=== PATIENT | male | born 1960 | race Caucasian/White ===

== ENCOUNTER 2023-02-17 09:00 | Outpatient (RCR) | payer OTHER, SELFPAY ==
[2023-02-17] MEDS: Normal Saline Flush 10 ML SYR IVP (10:13)
[2023-02-17 10:19] LABS: Abs Immature Grans 0.03 10^3/uL (0.0-0.06); Absolute Basophil Count 0.06 10^3/uL (0.0-0.2); Absolute Eosinophil Count 0.01 10^3/uL (0.0-0.7); Absolute Lymphocyte Count 0.71 10^3/uL (1.2-3.4); Absolute Monocyte Count 1.01 10^3/uL (0.1-0.8); Basophils % 0.8; Eosinophils % 0.1; HCT 33.9 % (40.0-50.0); HGB 11.1 g/dL (13.5-17.5); Immature Grans % 0.4; MCH 31.2 pg (27.0-33.0); MCHC 32.7 % (32.0-36.0); MCV 95 fL (80-95); MPV 9.2 fL (8.0-11.0); Monocytes % 14.2; Neutrophils % 74.5; Platelet Count 380 10^3/uL (130-400); RBC 3.56 10^6/uL (4.36-5.78); RDW 26.1 % (11.8-14.1); RDW-SD 86.4 fL; WBC 7.12 10^3/uL (4.4-10.8)
[2023-02-17 10:36] LABS: ALT 16 U/L (16-63); AST 9 U/L (15-37); Albumin 3.8 g/dL (3.4-5.0); Alkaline Phosphatase 103 U/L (46-116); Anion Gap 7.4 mmol/L (3-11); BUN 14 mg/dL (7-18); Bilirubin, Total 0.3 mg/dL (0.2-1.0); CO2 24.6 mmol/L (21.0-32.0); CREATININE 0.8 mg/dL (0.70-1.30); Calcium 8.9 mg/dL (8.5-10.1); Chloride 105 mmol/L (98-107); Estimated GFR 100.69 (mL/min/1.73m2); Glucose 102 mg/dL (74-106); LDH 182 U/L (85-227); Sodium 137 mmol/L (136-145); Total Protein 8.1 g/dL (6.4-8.2); Uric Acid 3.1 mg/dL (3.5-7.2)
== END 2023-03-07 23:59 | disposition home or self-care (01) ==
LOC: INF 09:00
PROVIDERS: PCP Neuromusculoskeletal Medicine & OMM; Visit Provider Internal Medicine Hematology & Oncology
DX: Z45.2 Encounter for adjustment and management of vascular access device (principal); C86.0 Extranodal NK/T-cell lymphoma, nasal type; R59.1 Generalized enlarged lymph nodes; R16.0 Hepatomegaly, not elsewhere classified
CPT/HCPCS: 36591; 80053; 83615; 84550; 85025

== ENCOUNTER 2023-03-31 04:07 | Outpatient (RCR) | payer OTHER, SELFPAY ==
[2023-03-10] MEDS: Normal Saline Flush 10 ML SYR IVP (09:54)
[2023-03-10 09:57] LABS: Abs Immature Grans 0.04 10^3/uL (0.0-0.06); Absolute Basophil Count 0.08 10^3/uL (0.0-0.2); Absolute Lymphocyte Count 0.71 10^3/uL (1.2-3.4); Absolute Monocyte Count 1.04 10^3/uL (0.1-0.8); Absolute Neutrophil Count 5.74 10^3/uL (1.2-6.7); Basophils % 1.1; HCT 37.2 % (40.0-50.0); HGB 12.4 g/dL (13.5-17.5); Immature Grans % 0.5; Lymphocytes % 9.3; MCHC 33.3 % (32.0-36.0); MCV 96 fL (80-95); MPV 9.2 fL (8.0-11.0); Monocytes % 13.7; Neutrophils % 75.4; Platelet Count 335 10^3/uL (130-400); RBC 3.88 10^6/uL (4.36-5.78); RDW 22.9 % (11.8-14.1); RDW-SD 79.5 fL; WBC 7.61 10^3/uL (4.4-10.8)
[2023-03-10 10:12] LABS: ALT 17 U/L (16-63); AST 11 U/L (15-37); Albumin 3.8 g/dL (3.4-5.0); Alkaline Phosphatase 101 U/L (46-116); Anion Gap 9.7 mmol/L (3-11); BUN 12 mg/dL (7-18); Bilirubin, Total 0.2 mg/dL (0.2-1.0); CO2 24.3 mmol/L (21.0-32.0); CREATININE 0.9 mg/dL (0.70-1.30); Chloride 106 mmol/L (98-107); Estimated GFR 97.17 (mL/min/1.73m2); Glucose 124 mg/dL (74-106); LDH 169 U/L (85-227); Potassium 4.3 mmol/L (3.5-5.1); Sodium 140 mmol/L (136-145); Total Protein 7.9 g/dL (6.4-8.2); Uric Acid 4.3 mg/dL (3.5-7.2)
[2023-03-31] MEDS: Normal Saline Flush 10 ML SYR IVP (09:20)
[2023-03-31 09:29] LABS: Abs Immature Grans 0.03 10^3/uL (0.0-0.06); Absolute Basophil Count 0.05 10^3/uL (0.0-0.2); Absolute Eosinophil Count 0.06 10^3/uL (0.0-0.7); Absolute Lymphocyte Count 0.74 10^3/uL (1.2-3.4); Absolute Monocyte Count 0.93 10^3/uL (0.1-0.8); Absolute Neutrophil Count 4.41 10^3/uL (1.2-6.7); Basophils % 0.8; HCT 39.1 % (40.0-50.0); HGB 13.1 g/dL (13.5-17.5); Immature Grans % 0.5; Lymphocytes % 11.9; MCH 32.8 pg (27.0-33.0); MCHC 33.5 % (32.0-36.0); MCV 98 fL (80-95); MPV 9.6 fL (8.0-11.0); Neutrophils % 70.8; Platelet Count 287 10^3/uL (130-400); RDW 19.9 % (11.8-14.1); RDW-SD 72.7 fL; WBC 6.22 10^3/uL (4.4-10.8)
[2023-03-31 09:46] LABS: ALT 19 U/L (16-63); AST 11 U/L (15-37); Albumin 3.7 g/dL (3.4-5.0); Alkaline Phosphatase 105 U/L (46-116); Anion Gap 6.8 mmol/L (3-11); BUN 16 mg/dL (7-18); Bilirubin, Total 0.2 mg/dL (0.2-1.0); CO2 24.2 mmol/L (21.0-32.0); CREATININE 0.8 mg/dL (0.70-1.30); Calcium 8.8 mg/dL (8.5-10.1); Chloride 104 mmol/L (98-107); Estimated GFR 100.69 (mL/min/1.73m2); Glucose 137 mg/dL (74-106); LDH 167 U/L (85-227); Potassium 3.9 mmol/L (3.5-5.1); Sodium 135 mmol/L (136-145); Total Protein 7.6 g/dL (6.4-8.2)
== END 2023-04-07 23:59 | disposition home or self-care (01) ==
LOC: INF 04:07
PROVIDERS: PCP Neuromusculoskeletal Medicine & OMM; Visit Provider Internal Medicine Hematology & Oncology
DX: Z45.2 Encounter for adjustment and management of vascular access device (principal); C84.48 Peripheral T-cell lymphoma, not elsewhere classified, lymph nodes of multiple sites
CPT/HCPCS: 36591; 80053; 83615; 84550; 85025

== ENCOUNTER 2023-04-21 03:05 | Outpatient (RCR) | payer OTHER, SELFPAY ==
[2023-04-21] MEDS: Normal Saline Flush 10 ML SYR IVP (08:53)
[2023-04-21 09:04] LABS: Abs Immature Grans 0.04 10^3/uL (0.0-0.06); Absolute Basophil Count 0.04 10^3/uL (0.0-0.2); Absolute Eosinophil Count 0.05 10^3/uL (0.0-0.7); Absolute Lymphocyte Count 0.71 10^3/uL (1.2-3.4); Absolute Neutrophil Count 3.59 10^3/uL (1.2-6.7); Basophils % 0.7; Eosinophils % 0.9; HGB 14.2 g/dL (13.5-17.5); Immature Grans % 0.7; Lymphocytes % 13.1; MCH 33.3 pg (27.0-33.0); MCHC 33.8 % (32.0-36.0); MCV 98 fL (80-95); MPV 9.8 fL (8.0-11.0); Monocytes % 18.4; Neutrophils % 66.2; Platelet Count 294 10^3/uL (130-400); RBC 4.27 10^6/uL (4.36-5.78); RDW 17.7 % (11.8-14.1); RDW-SD 63.7 fL; WBC 5.43 10^3/uL (4.4-10.8)
[2023-04-21 09:13] LABS: ALT 22 U/L (16-63); AST 14 U/L (15-37); Albumin 3.7 g/dL (3.4-5.0); Alkaline Phosphatase 102 U/L (46-116); Anion Gap 6.5 mmol/L (3-11); BUN 14 mg/dL (7-18); Bilirubin, Total 0.2 mg/dL (0.2-1.0); CO2 25.5 mmol/L (21.0-32.0); CREATININE 0.8 mg/dL (0.70-1.30); Calcium 8.7 mg/dL (8.5-10.1); Chloride 105 mmol/L (98-107); Estimated GFR 100.06 (mL/min/1.73m2); Glucose 109 mg/dL (74-106); LDH 293 U/L (85-227); Potassium 4.3 mmol/L (3.5-5.1); Sodium 137 mmol/L (136-145); Total Protein 7.7 g/dL (6.4-8.2)
== END 2023-05-07 23:59 | disposition home or self-care (01) ==
LOC: INF 03:05
PROVIDERS: PCP Neuromusculoskeletal Medicine & OMM; Visit Provider Internal Medicine Hematology & Oncology
DX: Z45.2 Encounter for adjustment and management of vascular access device (principal); C84.48 Peripheral T-cell lymphoma, not elsewhere classified, lymph nodes of multiple sites
CPT/HCPCS: 36591; 80053; 83615; 85025

== ENCOUNTER 2023-07-07 09:30 | Outpatient (RCR) | payer OTHER, SELFPAY ==
[2023-05-31 13:27] LABS: Abs Immature Grans 0.04 10^3/uL (0.0-0.06); Absolute Basophil Count 0.06 10^3/uL (0.0-0.2); Absolute Eosinophil Count 1.09 10^3/uL (0.0-0.7); Absolute Lymphocyte Count 0.92 10^3/uL (1.2-3.4); Absolute Monocyte Count 0.76 10^3/uL (0.1-0.8); Absolute Neutrophil Count 7.38 10^3/uL (1.2-6.7); Basophils % 0.6; Eosinophils % 10.6; HCT 41.3 % (40.0-50.0); HGB 13.9 g/dL (13.5-17.5); Immature Grans % 0.4; MCH 31.5 pg (27.0-33.0); MCHC 33.7 % (32.0-36.0); MCV 94 fL (80-95); MPV 10.1 fL (8.0-11.0); Monocytes % 7.4; Platelet Count 241 10^3/uL (130-400); RBC 4.41 10^6/uL (4.36-5.78); RDW 15.4 % (11.8-14.1); RDW-SD 53.5 fL; WBC 10.25 10^3/uL (4.4-10.8)
[2023-05-31 13:45] LABS: ALT 11 U/L (16-63); AST 8 U/L (15-37); Albumin 3.7 g/dL (3.4-5.0); Alkaline Phosphatase 117 U/L (46-116); Anion Gap 10.6 mmol/L (3-11); BUN 12 mg/dL (7-18); Bilirubin, Total 0.3 mg/dL (0.2-1.0); CO2 23.4 mmol/L (21.0-32.0); CREATININE 0.9 mg/dL (0.70-1.30); Chloride 102 mmol/L (98-107); Estimated GFR 96.57 (mL/min/1.73m2); Glucose 123 mg/dL (74-106); LDH 227 U/L (85-227); Potassium 4.1 mmol/L (3.5-5.1); Sodium 136 mmol/L (136-145); Total Protein 7.9 g/dL (6.4-8.2)
[2023-05-31] MEDS: Normal Saline Flush 10 ML SYR IVP (14:35)
[2023-06-16 10:30] LABS: Abs Immature Grans 0.02 10^3/uL (0.0-0.06); Absolute Basophil Count 0.04 10^3/uL (0.0-0.2); Absolute Eosinophil Count 0.41 10^3/uL (0.0-0.7); Absolute Lymphocyte Count 0.52 10^3/uL (1.2-3.4); Absolute Monocyte Count 0.67 10^3/uL (0.1-0.8); Absolute Neutrophil Count 7.02 10^3/uL (1.2-6.7); Basophils % 0.5; Eosinophils % 4.7; HCT 41.9 % (40.0-50.0); HGB 14.4 g/dL (13.5-17.5); Immature Grans % 0.2; MCH 32.4 pg (27.0-33.0); MCHC 34.4 % (32.0-36.0); MCV 94 fL (80-95); MPV 10.2 fL (8.0-11.0); Monocytes % 7.7; Neutrophils % 80.9; Platelet Count 222 10^3/uL (130-400); RBC 4.45 10^6/uL (4.36-5.78); RDW 16.4 % (11.8-14.1); RDW-SD 57.1 fL; WBC 8.68 10^3/uL (4.4-10.8)
[2023-06-16 10:48] LABS: ALT 14 U/L (16-63); AST 8 U/L (15-37); Albumin 3.6 g/dL (3.4-5.0); Alkaline Phosphatase 109 U/L (46-116); BUN 10 mg/dL (7-18); Bilirubin, Total 0.4 mg/dL (0.2-1.0); CREATININE 0.9 mg/dL (0.70-1.30); Calcium 8.9 mg/dL (8.5-10.1); Chloride 105 mmol/L (98-107); Estimated GFR 96.57 (mL/min/1.73m2); Glucose 120 mg/dL (74-106); LDH 198 U/L (85-227); Sodium 135 mmol/L (136-145); Total Protein 7.8 g/dL (6.4-8.2)
[2023-07-07 10:13] LABS: Abs Immature Grans 0.06 10^3/uL (0.0-0.06); Absolute Basophil Count 0.05 10^3/uL (0.0-0.2); Absolute Eosinophil Count 0.25 10^3/uL (0.0-0.7); Absolute Lymphocyte Count 0.35 10^3/uL (1.2-3.4); Absolute Monocyte Count 0.68 10^3/uL (0.1-0.8); Absolute Neutrophil Count 10.02 10^3/uL (1.2-6.7); Basophils % 0.4; Eosinophils % 2.2; HCT 47.5 % (40.0-50.0); HGB 15.8 g/dL (13.5-17.5); Immature Grans % 0.5; Lymphocytes % 3.1; MCH 31.2 pg (27.0-33.0); MCHC 33.3 % (32.0-36.0); MCV 94 fL (80-95); Neutrophils % 87.8; Platelet Count 251 10^3/uL (130-400); RBC 5.07 10^6/uL (4.36-5.78); RDW 17.1 % (11.8-14.1); RDW-SD 58.1 fL; WBC 11.41 10^3/uL (4.4-10.8)
[2023-07-07 10:24] LABS: ALT 10 U/L (16-63); AST 7 U/L (15-37); Albumin 3.5 g/dL (3.4-5.0); Alkaline Phosphatase 106 U/L (46-116); BUN 15 mg/dL (7-18); Bilirubin, Total 0.6 mg/dL (0.2-1.0); CREATININE 1.1 mg/dL (0.70-1.30); Calcium 9.1 mg/dL (8.5-10.1); Chloride 100 mmol/L (98-107); Glucose 136 mg/dL (74-106); LDH 227 U/L (85-227); Sodium 136 mmol/L (136-145); Total Protein 7.7 g/dL (6.4-8.2)
== END 2023-07-08 23:59 | disposition home or self-care (01) ==
LOC: INF 09:30
PROVIDERS: PCP Neuromusculoskeletal Medicine & OMM; Visit Provider Internal Medicine Hematology & Oncology
DX: C84.48 Peripheral T-cell lymphoma, not elsewhere classified, lymph nodes of multiple sites (principal); Z45.2 Encounter for adjustment and management of vascular access device
CPT/HCPCS: 36415; 36591; 80053; 83615; 85025

== ENCOUNTER 2023-07-28 03:06 | Outpatient (RCR) | payer OTHER, SELFPAY ==
[2023-07-28 10:37] LABS: Abs Immature Grans 0.04 10^3/uL (0.0-0.06); Absolute Basophil Count 0.05 10^3/uL (0.0-0.2); Absolute Eosinophil Count 0.17 10^3/uL (0.0-0.7); Absolute Lymphocyte Count 1.25 10^3/uL (1.2-3.4); Absolute Monocyte Count 0.62 10^3/uL (0.1-0.8); Basophils % 0.7; Eosinophils % 2.3; HCT 46.2 % (40.0-50.0); HGB 15.2 g/dL (13.5-17.5); Immature Grans % 0.5; Lymphocytes % 16.8; MCH 30.8 pg (27.0-33.0); MCHC 32.9 % (32.0-36.0); MCV 94 fL (80-95); Monocytes % 8.3; Neutrophils % 71.4; Platelet Count 285 10^3/uL (130-400); RBC 4.93 10^6/uL (4.36-5.78); RDW 17.8 % (11.8-14.1); RDW-SD 61.3 fL; WBC 7.43 10^3/uL (4.4-10.8)
[2023-07-28 11:01] LABS: ALT 17 U/L (16-63); AST 19 U/L (15-37); Albumin 3.6 g/dL (3.4-5.0); Alkaline Phosphatase 105 U/L (46-116); Anion Gap 7.4 mmol/L (3-11); BUN 12 mg/dL (7-18); Bilirubin, Total 0.2 mg/dL (0.2-1.0); CO2 26.6 mmol/L (21.0-32.0); CREATININE 0.9 mg/dL (0.70-1.30); Calcium 9.2 mg/dL (8.5-10.1); Chloride 103 mmol/L (98-107); Estimated GFR 96.57 (mL/min/1.73m2); Glucose 129 mg/dL (74-106); LDH 186 U/L (85-227); Potassium 4.2 mmol/L (3.5-5.1); Sodium 137 mmol/L (136-145); Total Protein 7.6 g/dL (6.4-8.2)
== END 2023-08-07 23:59 | disposition home or self-care (01) ==
LOC: INF 03:06
PROVIDERS: PCP Neuromusculoskeletal Medicine & OMM; Visit Provider Internal Medicine Hematology & Oncology
DX: C84.48 Peripheral T-cell lymphoma, not elsewhere classified, lymph nodes of multiple sites (principal)
CPT/HCPCS: 36415; 80053; 83615; 85025

== ENCOUNTER 2023-08-18 01:34 | Outpatient (RCR) | payer OTHER, SELFPAY ==
[2023-08-18 09:38] LABS: Abs Immature Grans 0.02 10^3/uL (0.0-0.06); Absolute Basophil Count 0.03 10^3/uL (0.0-0.2); Absolute Eosinophil Count 0.17 10^3/uL (0.0-0.7); Absolute Lymphocyte Count 1.01 10^3/uL (1.2-3.4); Absolute Monocyte Count 0.62 10^3/uL (0.1-0.8); Absolute Neutrophil Count 5.28 10^3/uL (1.2-6.7); Basophils % 0.4; Eosinophils % 2.4; HCT 47.5 % (40.0-50.0); HGB 15.8 g/dL (13.5-17.5); Immature Grans % 0.3; Lymphocytes % 14.2; MCH 30.7 pg (27.0-33.0); MCHC 33.3 % (32.0-36.0); MCV 92 fL (80-95); MPV 9.4 fL (8.0-11.0); Monocytes % 8.7; Platelet Count 228 10^3/uL (130-400); RBC 5.14 10^6/uL (4.36-5.78); RDW 17.9 % (11.8-14.1); RDW-SD 61.3 fL; WBC 7.13 10^3/uL (4.4-10.8)
[2023-08-18 10:13] LABS: ALT 13 U/L (16-63); AST 13 U/L (15-37); Albumin 3.9 g/dL (3.4-5.0); Alkaline Phosphatase 122 U/L (46-116); Anion Gap 8.5 mmol/L (3-11); BUN 16 mg/dL (7-18); Bilirubin, Total 0.3 mg/dL (0.2-1.0); CO2 24.5 mmol/L (21.0-32.0); CREATININE 0.9 mg/dL (0.70-1.30); Calcium 9.3 mg/dL (8.5-10.1); Chloride 102 mmol/L (98-107); Estimated GFR 96.57 (mL/min/1.73m2); Glucose 116 mg/dL (74-106); LDH 191 U/L (85-227); Potassium 4.3 mmol/L (3.5-5.1); Sodium 135 mmol/L (136-145); Total Protein 7.9 g/dL (6.4-8.2)
== END 2023-09-07 23:59 | disposition home or self-care (01) ==
LOC: INF 01:34
PROVIDERS: PCP Neuromusculoskeletal Medicine & OMM; Visit Provider Internal Medicine Hematology & Oncology
DX: C84.48 Peripheral T-cell lymphoma, not elsewhere classified, lymph nodes of multiple sites (principal)
CPT/HCPCS: 36415; 80053; 83615; 85025

== ENCOUNTER 2023-09-28 14:30 | Outpatient (RCR) | payer OTHER, SELFPAY ==
[2023-09-08 13:08] LABS: Abs Immature Grans 0.02 10^3/uL (0.0-0.06); Absolute Basophil Count 0.03 10^3/uL (0.0-0.2); Absolute Eosinophil Count 0.11 10^3/uL (0.0-0.7); Absolute Lymphocyte Count 1.09 10^3/uL (1.2-3.4); Absolute Monocyte Count 0.63 10^3/uL (0.1-0.8); Basophils % 0.4; Eosinophils % 1.4; HCT 48.9 % (40.0-50.0); HGB 16.2 g/dL (13.5-17.5); Immature Grans % 0.2; Lymphocytes % 13.5; MCH 30.3 pg (27.0-33.0); MCHC 33.1 % (32.0-36.0); MCV 91 fL (80-95); MPV 9.6 fL (8.0-11.0); Monocytes % 7.8; Neutrophils % 76.7; Platelet Count 224 10^3/uL (130-400); RBC 5.35 10^6/uL (4.36-5.78); RDW 17.8 % (11.8-14.1); RDW-SD 59.9 fL; WBC 8.08 10^3/uL (4.4-10.8)
[2023-09-08 13:27] LABS: ALT 14 U/L (16-63); AST 14 U/L (15-37); Albumin 4.1 g/dL (3.4-5.0); Alkaline Phosphatase 99 U/L (46-116); Anion Gap 8.7 mmol/L (3-11); BUN 16 mg/dL (7-18); Bilirubin, Total 0.3 mg/dL (0.2-1.0); CO2 25.3 mmol/L (21.0-32.0); CREATININE 0.9 mg/dL (0.70-1.30); Calcium 9.5 mg/dL (8.5-10.1); Chloride 101 mmol/L (98-107); Estimated GFR 96.57 (mL/min/1.73m2); Glucose 112 mg/dL (74-106); LDH 185 U/L (85-227); Potassium 3.8 mmol/L (3.5-5.1); Sodium 135 mmol/L (136-145); Total Protein 7.9 g/dL (6.4-8.2)
[2023-09-28 14:59] LABS: Abs Immature Grans 0.05 10^3/uL (0.0-0.06); Absolute Basophil Count 0.03 10^3/uL (0.0-0.2); Absolute Eosinophil Count 0.15 10^3/uL (0.0-0.7); Absolute Lymphocyte Count 1.14 10^3/uL (1.2-3.4); Absolute Monocyte Count 0.65 10^3/uL (0.1-0.8); Absolute Neutrophil Count 6.34 10^3/uL (1.2-6.7); Basophils % 0.4; Eosinophils % 1.8; HCT 49.3 % (40.0-50.0); HGB 16.4 g/dL (13.5-17.5); Immature Grans % 0.6; Lymphocytes % 13.6; MCH 30.9 pg (27.0-33.0); MCHC 33.3 % (32.0-36.0); MCV 93 fL (80-95); MPV 9.1 fL (8.0-11.0); Monocytes % 7.8; Neutrophils % 75.8; Platelet Count 215 10^3/uL (130-400); RDW 17.3 % (11.8-14.1); RDW-SD 60.1 fL; WBC 8.36 10^3/uL (4.4-10.8)
[2023-09-28 15:15] LABS: ALT 13 U/L (16-63); AST 12 U/L (15-37); Alkaline Phosphatase 96 U/L (46-116); Anion Gap 2.3 mmol/L (3-11); BUN 11 mg/dL (7-18); Bilirubin, Total 0.5 mg/dL (0.2-1.0); CO2 29.7 mmol/L (21.0-32.0); Calcium 9.6 mg/dL (8.5-10.1); Chloride 103 mmol/L (98-107); Glucose 98 mg/dL (74-106); LDH 199 U/L (85-227); Potassium 4.7 mmol/L (3.5-5.1); Sodium 135 mmol/L (136-145)
== END 2023-10-07 23:59 | disposition home or self-care (01) ==
LOC: INF 14:30
PROVIDERS: PCP Neuromusculoskeletal Medicine & OMM; Visit Provider Internal Medicine Hematology & Oncology
DX: C84.48 Peripheral T-cell lymphoma, not elsewhere classified, lymph nodes of multiple sites (principal)
CPT/HCPCS: 36415; 80053; 83615; 85025

== ENCOUNTER 2023-10-20 04:10 | Outpatient (RCR) | payer OTHER, SELFPAY ==
[2023-10-20 11:54] LABS: Abs Immature Grans 0.02 10^3/uL (0.0-0.06); Absolute Basophil Count 0.02 10^3/uL (0.0-0.2); Absolute Eosinophil Count 0.13 10^3/uL (0.0-0.7); Absolute Lymphocyte Count 1.09 10^3/uL (1.2-3.4); Absolute Monocyte Count 0.62 10^3/uL (0.1-0.8); Absolute Neutrophil Count 6.05 10^3/uL (1.2-6.7); Basophils % 0.3; Eosinophils % 1.6; HCT 47.5 % (40.0-50.0); HGB 16.1 g/dL (13.5-17.5); Immature Grans % 0.3; Lymphocytes % 13.7; MCH 31.9 pg (27.0-33.0); MCHC 33.9 % (32.0-36.0); MCV 94 fL (80-95); MPV 9.1 fL (8.0-11.0); Monocytes % 7.8; Neutrophils % 76.3; Platelet Count 204 10^3/uL (130-400); RBC 5.05 10^6/uL (4.36-5.78); RDW-SD 58.5 fL; WBC 7.93 10^3/uL (4.4-10.8)
[2023-10-20 12:08] LABS: ALT 14 U/L (16-63); AST 12 U/L (15-37); Albumin 3.9 g/dL (3.4-5.0); Alkaline Phosphatase 98 U/L (46-116); Anion Gap 8.2 mmol/L (3-11); BUN 15 mg/dL (7-18); Bilirubin, Total 0.4 mg/dL (0.2-1.0); CO2 25.8 mmol/L (21.0-32.0); Calcium 9.1 mg/dL (8.5-10.1); Chloride 103 mmol/L (98-107); Glucose 98 mg/dL (74-106); LDH 185 U/L (85-227); Potassium 4.1 mmol/L (3.5-5.1); Sodium 137 mmol/L (136-145); Total Protein 7.7 g/dL (6.4-8.2)
== END 2023-11-07 23:59 | disposition home or self-care (01) ==
LOC: INF 04:10
PROVIDERS: PCP Neuromusculoskeletal Medicine & OMM; Visit Provider Internal Medicine Hematology & Oncology
DX: C84.48 Peripheral T-cell lymphoma, not elsewhere classified, lymph nodes of multiple sites (principal)
CPT/HCPCS: 36415; 80053; 83615; 85025

== ENCOUNTER 2023-12-08 03:23 | Outpatient (RCR) | payer OTHER, SELFPAY ==
[2023-11-17 14:05] LABS: Abs Immature Grans 0.03 10^3/uL (0.0-0.06); Absolute Basophil Count 0.02 10^3/uL (0.0-0.2); Absolute Eosinophil Count 0.08 10^3/uL (0.0-0.7); Absolute Lymphocyte Count 1.25 10^3/uL (1.2-3.4); Absolute Monocyte Count 0.59 10^3/uL (0.1-0.8); Absolute Neutrophil Count 5.11 10^3/uL (1.2-6.7); Basophils % 0.3; Eosinophils % 1.1; HCT 50.2 % (40.0-50.0); HGB 17.1 g/dL (13.5-17.5); Immature Grans % 0.4; Lymphocytes % 17.7; MCH 32.5 pg (27.0-33.0); MCHC 34.1 % (32.0-36.0); MCV 95 fL (80-95); MPV 9.4 fL (8.0-11.0); Monocytes % 8.3; Neutrophils % 72.2; Platelet Count 206 10^3/uL (130-400); RBC 5.26 10^6/uL (4.36-5.78); RDW-SD 57.3 fL; WBC 7.08 10^3/uL (4.4-10.8)
[2023-11-17 14:17] LABS: ALT 15 U/L (16-63); AST 15 U/L (15-37); Alkaline Phosphatase 90 U/L (46-116); Anion Gap 6.7 mmol/L (3-11); BUN 12 mg/dL (7-18); Bilirubin, Total 0.4 mg/dL (0.2-1.0); CO2 27.3 mmol/L (21.0-32.0); CREATININE 1.1 mg/dL (0.70-1.30); Calcium 9.6 mg/dL (8.5-10.1); Chloride 103 mmol/L (98-107); Glucose 136 mg/dL (74-106); LDH 177 U/L (85-227); Potassium 4.5 mmol/L (3.5-5.1); Sodium 137 mmol/L (136-145)
[2023-12-08 08:15] LABS: Abs Immature Grans 0.04 10^3/uL (0.0-0.06); Absolute Basophil Count 0.02 10^3/uL (0.0-0.2); Absolute Eosinophil Count 0.11 10^3/uL (0.0-0.7); Absolute Lymphocyte Count 1.17 10^3/uL (1.2-3.4); Absolute Monocyte Count 0.71 10^3/uL (0.1-0.8); Absolute Neutrophil Count 6.13 10^3/uL (1.2-6.7); Basophils % 0.2; Eosinophils % 1.3; HCT 48.3 % (40.0-50.0); HGB 16.6 g/dL (13.5-17.5); Immature Grans % 0.5; Lymphocytes % 14.3; MCH 32.4 pg (27.0-33.0); MCHC 34.4 % (32.0-36.0); MCV 94 fL (80-95); MPV 9.7 fL (8.0-11.0); Monocytes % 8.7; Platelet Count 232 10^3/uL (130-400); RBC 5.12 10^6/uL (4.36-5.78); RDW 15.1 % (11.8-14.1); RDW-SD 52.4 fL; WBC 8.18 10^3/uL (4.4-10.8)
[2023-12-08 08:33] LABS: ALT 11 U/L (16-63); AST 14 U/L (15-37); Albumin 3.8 g/dL (3.4-5.0); Alkaline Phosphatase 108 U/L (46-116); Anion Gap 8.8 mmol/L (3-11); BUN 14 mg/dL (7-18); Bilirubin, Total 0.4 mg/dL (0.2-1.0); CO2 24.2 mmol/L (21.0-32.0); CREATININE 0.9 mg/dL (0.70-1.30); Calcium 9.5 mg/dL (8.5-10.1); Chloride 103 mmol/L (98-107); Estimated GFR 96.57 (mL/min/1.73m2); Glucose 111 mg/dL (74-106); LDH 197 U/L (85-227); Potassium 4.8 mmol/L (3.5-5.1); Sodium 136 mmol/L (136-145); Total Protein 7.8 g/dL (6.4-8.2)
== END 2023-12-08 23:59 | disposition home or self-care (01) ==
LOC: INF 03:23
PROVIDERS: PCP Neuromusculoskeletal Medicine & OMM; Visit Provider Internal Medicine Hematology & Oncology
DX: C84.48 Peripheral T-cell lymphoma, not elsewhere classified, lymph nodes of multiple sites (principal)
CPT/HCPCS: 36415; 80053; 83615; 85025

== ENCOUNTER 2023-12-29 01:21 | Outpatient (RCR) | payer OTHER, SELFPAY ==
[2023-12-29 09:37] LABS: Abs Immature Grans 0.03 10^3/uL (0.0-0.06); Absolute Basophil Count 0.02 10^3/uL (0.0-0.2); Absolute Eosinophil Count 0.14 10^3/uL (0.0-0.7); Absolute Lymphocyte Count 1.06 10^3/uL (1.2-3.4); Absolute Monocyte Count 0.66 10^3/uL (0.1-0.8); Absolute Neutrophil Count 5.17 10^3/uL (1.2-6.7); Basophils % 0.3; HGB 17.2 g/dL (13.5-17.5); Immature Grans % 0.4; MCH 33.2 pg (27.0-33.0); MCHC 34.4 % (32.0-36.0); MCV 97 fL (80-95); MPV 9.5 fL (8.0-11.0); Monocytes % 9.3; Platelet Count 224 10^3/uL (130-400); RBC 5.18 10^6/uL (4.36-5.78); RDW 15.9 % (11.8-14.1); RDW-SD 55.7 fL; WBC 7.08 10^3/uL (4.4-10.8)
[2023-12-29 10:06] LABS: ALT 13 U/L (16-63); AST 15 U/L (15-37); Alkaline Phosphatase 113 U/L (46-116); Anion Gap 7.6 mmol/L (3-11); BUN 12 mg/dL (7-18); Bilirubin, Total 0.3 mg/dL (0.2-1.0); CO2 27.4 mmol/L (21.0-32.0); Calcium 9.3 mg/dL (8.5-10.1); Chloride 103 mmol/L (98-107); Glucose 113 mg/dL (74-106); LDH 202 U/L (85-227); Potassium 4.5 mmol/L (3.5-5.1); Sodium 138 mmol/L (136-145); Total Protein 8.2 g/dL (6.4-8.2)
== END 2024-01-06 23:59 | disposition home or self-care (01) ==
LOC: INF 01:21
PROVIDERS: PCP Neuromusculoskeletal Medicine & OMM; Visit Provider Internal Medicine Hematology & Oncology
DX: C84.48 Peripheral T-cell lymphoma, not elsewhere classified, lymph nodes of multiple sites (principal)
CPT/HCPCS: 36415; 80053; 83615; 85025

== ENCOUNTER 2024-01-19 03:37 | Outpatient (RCR) | payer OTHER, SELFPAY ==
[2024-01-19 11:35] LABS: Abs Immature Grans 0.04 10^3/uL (0.0-0.06); Absolute Basophil Count 0.04 10^3/uL (0.0-0.2); Absolute Eosinophil Count 0.13 10^3/uL (0.0-0.7); Absolute Lymphocyte Count 1.38 10^3/uL (1.2-3.4); Absolute Neutrophil Count 6.11 10^3/uL (1.2-6.7); Basophils % 0.5; Eosinophils % 1.5; HCT 50.6 % (40.0-50.0); HGB 17.2 g/dL (13.5-17.5); Immature Grans % 0.5; Lymphocytes % 16.4; MCH 32.5 pg (27.0-33.0); MCV 96 fL (80-95); MPV 9.4 fL (8.0-11.0); Monocytes % 8.3; Neutrophils % 72.8; Platelet Count 227 10^3/uL (130-400); RDW 15.7 % (11.8-14.1); RDW-SD 55.3 fL
[2024-01-19 11:54] LABS: ALT 13 U/L (16-63); AST 15 U/L (15-37); Albumin 4.1 g/dL (3.4-5.0); Alkaline Phosphatase 107 U/L (46-116); Anion Gap 10.4 mmol/L (3-11); BUN 14 mg/dL (7-18); Bilirubin, Total 0.5 mg/dL (0.2-1.0); CO2 26.6 mmol/L (21.0-32.0); CREATININE 0.9 mg/dL (0.70-1.30); Calcium 9.3 mg/dL (8.5-10.1); Chloride 103 mmol/L (98-107); Estimated GFR 96.57 (mL/min/1.73m2); Glucose 104 mg/dL (74-106); LDH 186 U/L (85-227); Potassium 4.3 mmol/L (3.5-5.1); Sodium 140 mmol/L (136-145); Total Protein 8.2 g/dL (6.4-8.2)
== END 2024-02-06 23:59 | disposition home or self-care (01) ==
LOC: INF 03:37
PROVIDERS: Nurse Practitioner Adult Health; PCP Neuromusculoskeletal Medicine & OMM; Visit Provider Internal Medicine Hematology & Oncology
DX: C84.48 Peripheral T-cell lymphoma, not elsewhere classified, lymph nodes of multiple sites (principal)
CPT/HCPCS: 36415; 80053; 83615; 85025

== ENCOUNTER 2024-03-01 04:50 | Outpatient (RCR) | payer OTHER, SELFPAY ==
[2024-02-09 11:36] LABS: Abs Immature Grans 0.03 10^3/uL (0.0-0.06); Absolute Basophil Count 0.03 10^3/uL (0.0-0.2); Absolute Eosinophil Count 0.13 10^3/uL (0.0-0.7); Absolute Lymphocyte Count 1.24 10^3/uL (1.2-3.4); Absolute Monocyte Count 0.62 10^3/uL (0.1-0.8); Absolute Neutrophil Count 5.67 10^3/uL (1.2-6.7); Basophils % 0.4; Eosinophils % 1.7; HCT 49.5 % (40.0-50.0); HGB 16.9 g/dL (13.5-17.5); Immature Grans % 0.4; Lymphocytes % 16.1; MCHC 34.1 % (32.0-36.0); MCV 97 fL (80-95); MPV 9.3 fL (8.0-11.0); Neutrophils % 73.4; Platelet Count 212 10^3/uL (130-400); RBC 5.12 10^6/uL (4.36-5.78); RDW 15.6 % (11.8-14.1); RDW-SD 54.9 fL; WBC 7.72 10^3/uL (4.4-10.8)
[2024-02-09 12:51] LABS: ALT 20 U/L (16-63); AST 16 U/L (15-37); Albumin 3.9 g/dL (3.4-5.0); Alkaline Phosphatase 100 U/L (46-116); Anion Gap 10.6 mmol/L (3-11); BUN 17 mg/dL (7-18); Bilirubin, Total 0.4 mg/dL (0.2-1.0); CO2 23.4 mmol/L (21.0-32.0); CREATININE 0.9 mg/dL (0.70-1.30); Calcium 8.9 mg/dL (8.5-10.1); Chloride 105 mmol/L (98-107); Estimated GFR 96.57 (mL/min/1.73m2); Glucose 116 mg/dL (74-106); LDH 204 U/L (85-227); Potassium 4.1 mmol/L (3.5-5.1); Sodium 139 mmol/L (136-145); Total Protein 7.9 g/dL (6.4-8.2)
[2024-03-01 10:50] LABS: Abs Immature Grans 0.03 10^3/uL (0.0-0.06); Absolute Basophil Count 0.03 10^3/uL (0.0-0.2); Absolute Eosinophil Count 0.14 10^3/uL (0.0-0.7); Absolute Lymphocyte Count 1.14 10^3/uL (1.2-3.4); Absolute Monocyte Count 0.54 10^3/uL (0.1-0.8); Absolute Neutrophil Count 5.32 10^3/uL (1.2-6.7); Basophils % 0.4; Eosinophils % 1.9; HCT 51.6 % (40.0-50.0); HGB 17.4 g/dL (13.5-17.5); Immature Grans % 0.4; Lymphocytes % 15.8; MCH 33.3 pg (27.0-33.0); MCHC 33.7 % (32.0-36.0); MCV 99 fL (80-95); MPV 9.3 fL (8.0-11.0); Monocytes % 7.5; Platelet Count 195 10^3/uL (130-400); RBC 5.22 10^6/uL (4.36-5.78); RDW 15.6 % (11.8-14.1); RDW-SD 56.7 fL
[2024-03-01 11:05] LABS: ALT 16 U/L (16-63); AST 12 U/L (15-37); Albumin 3.9 g/dL (3.4-5.0); Alkaline Phosphatase 105 U/L (46-116); Anion Gap 8.4 mmol/L (3-11); BUN 12 mg/dL (7-18); Bilirubin, Total 0.4 mg/dL (0.2-1.0); CO2 28.6 mmol/L (21.0-32.0); CREATININE 0.9 mg/dL (0.70-1.30); Calcium 8.9 mg/dL (8.5-10.1); Chloride 103 mmol/L (98-107); Estimated GFR 96.57 (mL/min/1.73m2); Glucose 124 mg/dL (74-106); LDH 180 U/L (85-227); Potassium 4.2 mmol/L (3.5-5.1); Sodium 140 mmol/L (136-145); Total Protein 7.8 g/dL (6.4-8.2)
== END 2024-03-07 23:59 | disposition home or self-care (01) ==
LOC: INF 04:50
PROVIDERS: Nurse Practitioner Adult Health; PCP Neuromusculoskeletal Medicine & OMM; Visit Provider Internal Medicine Hematology & Oncology
DX: C84.48 Peripheral T-cell lymphoma, not elsewhere classified, lymph nodes of multiple sites (principal)
CPT/HCPCS: 36415; 80053; 83615; 85025

== ENCOUNTER 2024-03-22 04:34 | Outpatient (RCR) | payer OTHER, SELFPAY ==
[2024-03-22 08:06] LABS: Abs Immature Grans 0.02 10^3/uL (0.0-0.06); Absolute Basophil Count 0.05 10^3/uL (0.0-0.2); Absolute Eosinophil Count 0.18 10^3/uL (0.0-0.7); Absolute Lymphocyte Count 1.11 10^3/uL (1.2-3.4); Absolute Monocyte Count 0.61 10^3/uL (0.1-0.8); Absolute Neutrophil Count 5.19 10^3/uL (1.2-6.7); Basophils % 0.7 %; Eosinophils % 2.5 %; HCT 51.5 % (40.0-50.0); HGB 17.5 g/dL (13.5-17.5); Immature Grans % 0.3 %; Lymphocytes % 15.5 %; MCH 33.3 pg (27.0-33.0); MCV 98 fL (80-95); MPV 9.2 fL (8.0-11.0); Monocytes % 8.5 %; Neutrophils % 72.5 %; Platelet Count 209 10^3/uL (130-400); RBC 5.26 10^6/uL (4.36-5.78); RDW 15.3 % (11.8-14.1); RDW-SD 54.7 fL; WBC 7.16 10^3/uL (4.4-10.8)
[2024-03-22 08:35] LABS: ALT 16 U/L (16-63); AST 13 U/L (15-37); Albumin 3.9 g/dL (3.4-5.0); Alkaline Phosphatase 95 U/L (46-116); Anion Gap 10.4 mmol/L (3-11); BUN 17 mg/dL (7-18); Bilirubin, Total 0.5 mg/dL (0.2-1.0); CO2 26.6 mmol/L (21.0-32.0); Calcium 9.3 mg/dL (8.5-10.1); Chloride 104 mmol/L (98-107); Glucose 145 mg/dL (74-106); Potassium 4.4 mmol/L (3.5-5.1); Sodium 141 mmol/L (136-145); Total Protein 7.9 g/dL (6.4-8.2)
[2024-03-22 08:47] LABS: LDH 186 U/L (85-227)
== END 2024-04-07 23:59 | disposition home or self-care (01) ==
LOC: INF 04:34
PROVIDERS: Nurse Practitioner Adult Health; PCP Neuromusculoskeletal Medicine & OMM; Visit Provider Internal Medicine Hematology & Oncology
DX: C84.48 Peripheral T-cell lymphoma, not elsewhere classified, lymph nodes of multiple sites (principal)
CPT/HCPCS: 36415; 80053; 83615; 85025

== ENCOUNTER 2024-05-03 01:17 | Outpatient (RCR) | payer OTHER, SELFPAY ==
[2024-04-12 10:07] LABS: Abs Immature Grans 0.02 10^3/uL (0.0-0.06); Absolute Basophil Count 0.03 10^3/uL (0.0-0.2); Absolute Lymphocyte Count 1.26 10^3/uL (1.2-3.4); Absolute Monocyte Count 0.59 10^3/uL (0.1-0.8); Absolute Neutrophil Count 7.38 10^3/uL (1.2-6.7); Basophils % 0.3 %; Eosinophils % 1.1 %; HCT 49.9 % (40.0-50.0); HGB 17.3 g/dL (13.5-17.5); Immature Grans % 0.2 %; Lymphocytes % 13.4 %; MCH 33.2 pg (27.0-33.0); MCHC 34.7 % (32.0-36.0); MCV 96 fL (80-95); MPV 9.5 fL (8.0-11.0); Monocytes % 6.3 %; Neutrophils % 78.7 %; Platelet Count 194 10^3/uL (130-400); RBC 5.21 10^6/uL (4.36-5.78); RDW 14.9 % (11.8-14.1); RDW-SD 52.5 fL; WBC 9.38 10^3/uL (4.4-10.8)
[2024-04-12 10:23] LABS: ALT 17 U/L (16-63); AST 13 U/L (15-37); Albumin 3.8 g/dL (3.4-5.0); Alkaline Phosphatase 98 U/L (46-116); Anion Gap 10.1 mmol/L (3-11); BUN 16 mg/dL (7-18); Bilirubin, Total 0.4 mg/dL (0.2-1.0); CO2 23.9 mmol/L (21.0-32.0); CREATININE 1.1 mg/dL (0.70-1.30); Calcium 8.4 mg/dL (8.5-10.1); Chloride 105 mmol/L (98-107); Estimated GFR 75.43 (mL/min/1.73m2); Glucose 143 mg/dL (74-106); LDH 172 U/L (85-227); Potassium 4.1 mmol/L (3.5-5.1); Sodium 139 mmol/L (136-145); Total Protein 7.5 g/dL (6.4-8.2)
[2024-05-03 11:55] LABS: Abs Immature Grans 0.03 10^3/uL (0.0-0.06); Absolute Basophil Count 0.03 10^3/uL (0.0-0.2); Absolute Eosinophil Count 0.12 10^3/uL (0.0-0.7); Absolute Lymphocyte Count 1.36 10^3/uL (1.2-3.4); Absolute Monocyte Count 0.55 10^3/uL (0.1-0.8); Basophils % 0.4 %; Eosinophils % 1.5 %; HCT 51.6 % (40.0-50.0); HGB 17.6 g/dL (13.5-17.5); Immature Grans % 0.4 %; Lymphocytes % 17.2 %; MCH 33.1 pg (27.0-33.0); MCHC 34.1 % (32.0-36.0); MCV 97 fL (80-95); MPV 9.1 fL (8.0-11.0); Neutrophils % 73.5 %; Platelet Count 202 10^3/uL (130-400); RBC 5.32 10^6/uL (4.36-5.78); RDW 14.9 % (11.8-14.1); RDW-SD 52.9 fL; WBC 7.89 10^3/uL (4.4-10.8)
[2024-05-03 12:08] LABS: ALT 15 U/L (16-63); AST 11 U/L (15-37); Albumin 3.7 g/dL (3.4-5.0); Alkaline Phosphatase 102 U/L (46-116); Anion Gap 11.3 mmol/L (3-11); BUN 12 mg/dL (7-18); Bilirubin, Total 0.46 mg/dL (0.2-1.0); CO2 23.7 mmol/L (21.0-32.0); Calcium 8.8 mg/dL (8.5-10.1); Chloride 103 mmol/L (98-107); Estimated GFR 84.57 (mL/min/1.73m2); Glucose 141 mg/dL (74-106); LDH 159 U/L (85-227); Sodium 138 mmol/L (136-145); Total Protein 7.6 g/dL (6.4-8.2)
== END 2024-05-07 23:59 | disposition home or self-care (01) ==
LOC: INF 01:17
PROVIDERS: Nurse Practitioner Adult Health; PCP Neuromusculoskeletal Medicine & OMM; Visit Provider Internal Medicine Hematology & Oncology
DX: C84.48 Peripheral T-cell lymphoma, not elsewhere classified, lymph nodes of multiple sites (principal)
CPT/HCPCS: 36415; 80053; 83615; 83625; 85025

== ENCOUNTER 2024-05-24 02:40 | Outpatient (RCR) | payer OTHER, SELFPAY ==
[2024-05-24 12:38] LABS: Abs Immature Grans 0.03 10^3/uL (0.0-0.06); Absolute Basophil Count 0.02 10^3/uL (0.0-0.2); Absolute Eosinophil Count 0.11 10^3/uL (0.0-0.7); Absolute Lymphocyte Count 1.41 10^3/uL (1.2-3.4); Absolute Neutrophil Count 4.79 10^3/uL (1.2-6.7); Basophils % 0.3 %; Eosinophils % 1.6 %; HCT 49.3 % (40.0-50.0); HGB 17.1 g/dL (13.5-17.5); Immature Grans % 0.4 %; MCH 33.6 pg (27.0-33.0); MCHC 34.7 % (32.0-36.0); MCV 97 fL (80-95); MPV 9.5 fL (8.0-11.0); Monocytes % 9.9 %; Neutrophils % 67.8 %; Platelet Count 205 10^3/uL (130-400); RBC 5.09 10^6/uL (4.36-5.78); RDW 14.8 % (11.8-14.1); RDW-SD 53.6 fL; WBC 7.06 10^3/uL (4.4-10.8)
[2024-05-24 13:01] LABS: ALT 15 U/L (16-63); AST 13 U/L (15-37); Albumin 3.7 g/dL (3.4-5.0); Alkaline Phosphatase 90 U/L (46-116); Anion Gap 9.6 mmol/L (3-11); BUN 15 mg/dL (7-18); Bilirubin, Total 0.52 mg/dL (0.2-1.0); CO2 23.4 mmol/L (21.0-32.0); CREATININE 0.9 mg/dL (0.70-1.30); Calcium 8.6 mg/dL (8.5-10.1); Chloride 105 mmol/L (98-107); Estimated GFR 95.97 (mL/min/1.73m2); Glucose 100 mg/dL (74-106); LDH 172 U/L (85-227); Sodium 138 mmol/L (136-145); Total Protein 7.5 g/dL (6.4-8.2)
== END 2024-06-07 23:59 | disposition home or self-care (01) ==
LOC: INF 02:40
PROVIDERS: Nurse Practitioner Adult Health; PCP Neuromusculoskeletal Medicine & OMM; Visit Provider Internal Medicine Hematology & Oncology
DX: C84.48 Peripheral T-cell lymphoma, not elsewhere classified, lymph nodes of multiple sites (principal)
CPT/HCPCS: 36415; 80053; 83615; 85025

== ENCOUNTER 2024-07-05 02:38 | Outpatient (RCR) | payer OTHER, SELFPAY ==
[2024-06-14 12:54] LABS: Abs Immature Grans 0.03 10^3/uL (0.0-0.06); Absolute Basophil Count 0.03 10^3/uL (0.0-0.2); Absolute Eosinophil Count 0.17 10^3/uL (0.0-0.7); Absolute Lymphocyte Count 1.34 10^3/uL (1.2-3.4); Absolute Monocyte Count 0.71 10^3/uL (0.1-0.8); Absolute Neutrophil Count 6.35 10^3/uL (1.2-6.7); Basophils % 0.3 %; HGB 17.8 g/dL (13.5-17.5); Immature Grans % 0.3 %; Lymphocytes % 15.5 %; MCH 33.3 pg (27.0-33.0); MCHC 34.2 % (32.0-36.0); MCV 97 fL (80-95); MPV 9.2 fL (8.0-11.0); Monocytes % 8.2 %; Neutrophils % 73.7 %; Platelet Count 213 10^3/uL (130-400); RBC 5.34 10^6/uL (4.36-5.78); RDW-SD 53.6 fL; WBC 8.63 10^3/uL (4.4-10.8)
[2024-06-14 13:19] LABS: ALT 17 U/L (16-63); AST 13 U/L (15-37); Albumin 3.9 g/dL (3.4-5.0); Alkaline Phosphatase 109 U/L (46-116); Anion Gap 7.9 mmol/L (3-11); BUN 12 mg/dL (7-18); Bilirubin, Total 0.36 mg/dL (0.2-1.0); CO2 25.1 mmol/L (21.0-32.0); Chloride 103 mmol/L (98-107); Estimated GFR 84.57 (mL/min/1.73m2); Glucose 117 mg/dL (74-106); LDH 162 U/L (85-227); Potassium 4.4 mmol/L (3.5-5.1); Sodium 136 mmol/L (136-145); Total Protein 7.7 g/dL (6.4-8.2)
[2024-07-05 11:01] LABS: Abs Immature Grans 0.03 10^3/uL (0.0-0.06); Absolute Basophil Count 0.04 10^3/uL (0.0-0.2); Absolute Eosinophil Count 0.18 10^3/uL (0.0-0.7); Absolute Lymphocyte Count 1.47 10^3/uL (1.2-3.4); Absolute Monocyte Count 0.73 10^3/uL (0.1-0.8); Absolute Neutrophil Count 5.27 10^3/uL (1.2-6.7); Basophils % 0.5 %; Eosinophils % 2.3 %; HCT 54.3 % (40.0-50.0); HGB 18.7 g/dL (13.5-17.5); Immature Grans % 0.4 %; MCH 33.9 pg (27.0-33.0); MCHC 34.4 % (32.0-36.0); MCV 99 fL (80-95); MPV 9.6 fL (8.0-11.0); Monocytes % 9.5 %; Neutrophils % 68.3 %; Platelet Count 221 10^3/uL (130-400); RBC 5.51 10^6/uL (4.36-5.78); RDW 15.5 % (11.8-14.1); WBC 7.72 10^3/uL (4.4-10.8)
[2024-07-05 11:17] LABS: ALT 13 U/L (16-63); AST 14 U/L (15-37); Alkaline Phosphatase 104 U/L (46-116); Anion Gap 6.7 mmol/L (3-11); BUN 12 mg/dL (7-18); Bilirubin, Total 0.52 mg/dL (0.2-1.0); CO2 28.3 mmol/L (21.0-32.0); Calcium 9.5 mg/dL (8.5-10.1); Chloride 104 mmol/L (98-107); Estimated GFR 84.57 (mL/min/1.73m2); Glucose 100 mg/dL (74-106); LDH 187 U/L (85-227); Potassium 4.7 mmol/L (3.5-5.1); Sodium 139 mmol/L (136-145); Total Protein 8.1 g/dL (6.4-8.2)
== END 2024-07-08 23:59 | disposition home or self-care (01) ==
LOC: INF 02:38
PROVIDERS: Internal Medicine Hematology & Oncology; PCP Neuromusculoskeletal Medicine & OMM; Visit Provider Nurse Practitioner Adult Health
DX: C84.48 Peripheral T-cell lymphoma, not elsewhere classified, lymph nodes of multiple sites (principal)
CPT/HCPCS: 36415; 80053; 83615; 85025

== ENCOUNTER 2024-07-26 02:43 | Outpatient (RCR) | payer OTHER, SELFPAY ==
[2024-07-26 10:01] LABS: Abs Immature Grans 0.04 10^3/uL (0.0-0.06); Absolute Basophil Count 0.04 10^3/uL (0.0-0.2); Absolute Eosinophil Count 0.15 10^3/uL (0.0-0.7); Absolute Lymphocyte Count 1.14 10^3/uL (1.2-3.4); Absolute Monocyte Count 0.55 10^3/uL (0.1-0.8); Absolute Neutrophil Count 5.56 10^3/uL (1.2-6.7); Basophils % 0.5 %; HCT 52.6 % (40.0-50.0); HGB 17.6 g/dL (13.5-17.5); Immature Grans % 0.5 %; Lymphocytes % 15.2 %; MCH 33.3 pg (27.0-33.0); MCHC 33.5 % (32.0-36.0); MCV 100 fL (80-95); MPV 9.5 fL (8.0-11.0); Monocytes % 7.4 %; Neutrophils % 74.4 %; Platelet Count 210 10^3/uL (130-400); RBC 5.28 10^6/uL (4.36-5.78); RDW 15.1 % (11.8-14.1); RDW-SD 56.5 fL; WBC 7.48 10^3/uL (4.4-10.8)
[2024-07-26 10:21] LABS: ALT 16 U/L (16-63); AST 18 U/L (15-37); Albumin 3.8 g/dL (3.4-5.0); Alkaline Phosphatase 100 U/L (46-116); Anion Gap 6.6 mmol/L (3-11); BUN 13 mg/dL (7-18); Bilirubin, Total 0.55 mg/dL (0.2-1.0); CO2 27.4 mmol/L (21.0-32.0); Calcium 9.3 mg/dL (8.5-10.1); Chloride 103 mmol/L (98-107); Estimated GFR 84.57 (mL/min/1.73m2); Glucose 137 mg/dL (74-106); LDH 190 U/L (85-227); Potassium 4.1 mmol/L (3.5-5.1); Sodium 137 mmol/L (136-145); Total Protein 7.7 g/dL (6.4-8.2)
== END 2024-08-07 23:59 | disposition home or self-care (01) ==
LOC: INF 02:43
PROVIDERS: PCP Neuromusculoskeletal Medicine & OMM; Visit Provider Nurse Practitioner Adult Health
DX: C84.48 Peripheral T-cell lymphoma, not elsewhere classified, lymph nodes of multiple sites (principal)
CPT/HCPCS: 36415; 80053; 83615; 85025

== ENCOUNTER 2024-09-05 01:52 | Outpatient (RCR) | payer OTHER, SELFPAY ==
[2024-08-16 09:53] LABS: Abs Immature Grans 0.03 10^3/uL (0.0-0.06); Absolute Basophil Count 0.03 10^3/uL (0.0-0.2); Absolute Eosinophil Count 0.14 10^3/uL (0.0-0.7); Absolute Lymphocyte Count 1.23 10^3/uL (1.2-3.4); Absolute Monocyte Count 0.67 10^3/uL (0.1-0.8); Absolute Neutrophil Count 5.82 10^3/uL (1.2-6.7); Basophils % 0.4 %; Eosinophils % 1.8 %; HCT 53.7 % (40.0-50.0); HGB 18.3 g/dL (13.5-17.5); Immature Grans % 0.4 %; Lymphocytes % 15.5 %; MCH 33.9 pg (27.0-33.0); MCHC 34.1 % (32.0-36.0); MCV 99 fL (80-95); MPV 9.7 fL (8.0-11.0); Monocytes % 8.5 %; Neutrophils % 73.4 %; Platelet Count 211 10^3/uL (130-400); RDW 15.4 % (11.8-14.1); RDW-SD 56.3 fL; WBC 7.92 10^3/uL (4.4-10.8)
[2024-08-16 10:16] LABS: ALT 14 U/L (16-63); AST 15 U/L (15-37); Alkaline Phosphatase 104 U/L (46-116); BUN 16 mg/dL (7-18); Bilirubin, Total 0.43 mg/dL (0.2-1.0); Calcium 9.4 mg/dL (8.5-10.1); Chloride 106 mmol/L (98-107); Estimated GFR 84.57 (mL/min/1.73m2); Glucose 111 mg/dL (74-106); LDH 189 U/L (85-227); Sodium 140 mmol/L (136-145)
[2024-08-16 10:24] LABS: Albumin 3.9 g/dL (3.4-5.0)
== END 2024-09-07 23:59 | disposition home or self-care (01) ==
LOC: INF 01:52
PROVIDERS: PCP Neuromusculoskeletal Medicine & OMM; Visit Provider Nurse Practitioner Adult Health
DX: C84.48 Peripheral T-cell lymphoma, not elsewhere classified, lymph nodes of multiple sites (principal)
CPT/HCPCS: 36415; 80053; 83615; 85025

== ENCOUNTER 2024-09-27 02:03 | Outpatient (RCR) | payer OTHER, SELFPAY ==
[2024-09-11 12:52] LABS: Abs Immature Grans 0.03 10^3/uL (0.0-0.06); Absolute Basophil Count 0.04 10^3/uL (0.0-0.2); Absolute Eosinophil Count 0.09 10^3/uL (0.0-0.7); Absolute Lymphocyte Count 1.16 10^3/uL (1.2-3.4); Absolute Monocyte Count 0.52 10^3/uL (0.1-0.8); Absolute Neutrophil Count 5.14 10^3/uL (1.2-6.7); Basophils % 0.6 %; Eosinophils % 1.3 %; HCT 53.2 % (40.0-50.0); HGB 18.4 g/dL (13.5-17.5); Immature Grans % 0.4 %; Lymphocytes % 16.6 %; MCH 33.5 pg (27.0-33.0); MCHC 34.6 % (32.0-36.0); MCV 97 fL (80-95); MPV 9.5 fL (8.0-11.0); Monocytes % 7.4 %; Neutrophils % 73.7 %; Platelet Count 213 10^3/uL (130-400); RBC 5.49 10^6/uL (4.36-5.78); RDW 14.9 % (11.8-14.1); RDW-SD 53.6 fL; WBC 6.98 10^3/uL (4.4-10.8)
[2024-09-11 13:07] LABS: ALT 15 U/L (16-63); AST 15 U/L (15-37); Albumin 3.9 g/dL (3.4-5.0); Alkaline Phosphatase 119 U/L (46-116); Anion Gap 4.5 mmol/L (3-11); BUN 13 mg/dL (7-18); Bilirubin, Total 0.35 mg/dL (0.2-1.0); CO2 29.5 mmol/L (21.0-32.0); CREATININE 0.9 mg/dL (0.70-1.30); Calcium 9.3 mg/dL (8.5-10.1); Chloride 105 mmol/L (98-107); Estimated GFR 95.97 (mL/min/1.73m2); Glucose 96 mg/dL (74-106); LDH 176 U/L (85-227); Sodium 139 mmol/L (136-145); Total Protein 8.2 g/dL (6.4-8.2)
[2024-09-27 08:25] LABS: Abs Immature Grans 0.02 10^3/uL (0.0-0.06); Absolute Basophil Count 0.03 10^3/uL (0.0-0.2); Absolute Eosinophil Count 0.11 10^3/uL (0.0-0.7); Absolute Lymphocyte Count 1.19 10^3/uL (1.2-3.4); Absolute Monocyte Count 0.57 10^3/uL (0.1-0.8); Basophils % 0.4 %; Eosinophils % 1.5 %; HCT 52.8 % (40.0-50.0); HGB 18.1 g/dL (13.5-17.5); Immature Grans % 0.3 %; MCH 33.5 pg (27.0-33.0); MCHC 34.3 % (32.0-36.0); MCV 98 fL (80-95); MPV 9.2 fL (8.0-11.0); Monocytes % 7.7 %; Neutrophils % 74.1 %; Platelet Count 224 10^3/uL (130-400); RBC 5.41 10^6/uL (4.36-5.78); RDW 14.8 % (11.8-14.1); RDW-SD 53.2 fL; WBC 7.42 10^3/uL (4.4-10.8)
[2024-09-27 08:50] LABS: ALT 12 U/L (16-63); AST 13 U/L (15-37); Albumin 3.8 g/dL (3.4-5.0); Alkaline Phosphatase 110 U/L (46-116); Anion Gap 5.3 mmol/L (3-11); BUN 13 mg/dL (7-18); Bilirubin, Total 0.46 mg/dL (0.2-1.0); CO2 29.7 mmol/L (21.0-32.0); Chloride 104 mmol/L (98-107); Estimated GFR 84.57 (mL/min/1.73m2); Glucose 130 mg/dL (74-106); LDH 176 U/L (85-227); Potassium 4.7 mmol/L (3.5-5.1); Sodium 139 mmol/L (136-145); Total Protein 7.8 g/dL (6.4-8.2)
== END 2024-10-07 23:59 | disposition home or self-care (01) ==
LOC: INF 02:03
PROVIDERS: PCP Neuromusculoskeletal Medicine & OMM; Visit Provider Nurse Practitioner Adult Health
DX: C84.48 Peripheral T-cell lymphoma, not elsewhere classified, lymph nodes of multiple sites (principal)
CPT/HCPCS: 36415; 80053; 83615; 85025

== ENCOUNTER 2024-10-18 02:12 | Outpatient (RCR) | payer MEDICAID, SELFPAY ==
[2024-10-18 11:24] LABS: Abs Immature Grans 0.03 10^3/uL (0.0-0.06); Absolute Basophil Count 0.04 10^3/uL (0.0-0.2); Absolute Eosinophil Count 0.13 10^3/uL (0.0-0.7); Absolute Lymphocyte Count 1.51 10^3/uL (1.2-3.4); Absolute Monocyte Count 0.66 10^3/uL (0.1-0.8); Absolute Neutrophil Count 6.87 10^3/uL (1.2-6.7); Basophils % 0.4 %; Eosinophils % 1.4 %; HCT 51.7 % (40.0-50.0); Immature Grans % 0.3 %; Lymphocytes % 16.3 %; MCH 33.7 pg (27.0-33.0); MCHC 34.8 % (32.0-36.0); MCV 97 fL (80-95); MPV 9.8 fL (8.0-11.0); Monocytes % 7.1 %; Neutrophils % 74.5 %; Platelet Count 212 10^3/uL (130-400); RBC 5.34 10^6/uL (4.36-5.78); RDW 15.1 % (11.8-14.1); RDW-SD 53.6 fL; WBC 9.24 10^3/uL (4.4-10.8)
[2024-10-18 11:40] LABS: ALT 14 U/L (16-63); AST 13 U/L (15-37); Alkaline Phosphatase 104 U/L (46-116); Anion Gap 7.5 mmol/L (3-11); BUN 12 mg/dL (7-18); Bilirubin, Total 0.52 mg/dL (0.2-1.0); CO2 29.5 mmol/L (21.0-32.0); CREATININE 1.1 mg/dL (0.70-1.30); Calcium 9.1 mg/dL (8.5-10.1); Chloride 103 mmol/L (98-107); Estimated GFR 75.43 (mL/min/1.73m2); Glucose 123 mg/dL (74-106); LDH 168 U/L (85-227); Potassium 4.5 mmol/L (3.5-5.1); Sodium 140 mmol/L (136-145); Total Protein 7.9 g/dL (6.4-8.2)
== END 2024-11-07 23:59 | disposition home or self-care (01) ==
LOC: INF 02:12
PROVIDERS: PCP Neuromusculoskeletal Medicine & OMM; Visit Provider Nurse Practitioner Adult Health
DX: C84.48 Peripheral T-cell lymphoma, not elsewhere classified, lymph nodes of multiple sites (principal)
CPT/HCPCS: 36415; 80053; 83615; 85025

== ENCOUNTER 2024-11-29 01:36 | Outpatient (RCR) | payer MEDICARE, SELFPAY ==
[2024-11-13] MEDS: Normal Saline Flush 10 ML SYR IVP (12:09)
[2024-11-13 12:17] LABS: Abs Immature Grans 0.03 10^3/uL (0.0-0.06); Absolute Basophil Count 0.05 10^3/uL (0.0-0.2); Absolute Lymphocyte Count 1.36 10^3/uL (1.2-3.4); Absolute Monocyte Count 0.52 10^3/uL (0.1-0.8); Absolute Neutrophil Count 6.28 10^3/uL (1.2-6.7); Basophils % 0.6 %; Eosinophils % 1.2 %; HCT 51.7 % (40.0-50.0); HGB 17.6 g/dL (13.5-17.5); Immature Grans % 0.4 %; Lymphocytes % 16.3 %; MCV 97 fL (80-95); MPV 9.1 fL (8.0-11.0); Monocytes % 6.2 %; Neutrophils % 75.3 %; Platelet Count 203 10^3/uL (130-400); RBC 5.33 10^6/uL (4.36-5.78); RDW 14.7 % (11.8-14.1); RDW-SD 53.3 fL; WBC 8.34 10^3/uL (4.4-10.8)
[2024-11-13 12:35] LABS: ALT 17 U/L (16-63); AST 15 U/L (15-37); Albumin 3.8 g/dL (3.4-5.0); Alkaline Phosphatase 96 U/L (46-116); Anion Gap 3.5 mmol/L (3-11); BUN 12 mg/dL (7-18); Bilirubin, Total 0.42 mg/dL (0.2-1.0); CO2 28.5 mmol/L (21.0-32.0); CREATININE 1.1 mg/dL (0.70-1.30); Calcium 8.3 mg/dL (8.5-10.1); Chloride 106 mmol/L (98-107); Estimated GFR 75.43 (mL/min/1.73m2); Glucose 160 mg/dL (74-106); LDH 166 U/L (85-227); Potassium 3.8 mmol/L (3.5-5.1); Sodium 138 mmol/L (136-145); Total Protein 7.5 g/dL (6.4-8.2)
[2024-11-29 08:40] LABS: Abs Immature Grans 0.03 10^3/uL (0.0-0.06); Absolute Basophil Count 0.03 10^3/uL (0.0-0.2); Absolute Eosinophil Count 0.14 10^3/uL (0.0-0.7); Absolute Lymphocyte Count 1.21 10^3/uL (1.2-3.4); Absolute Monocyte Count 0.58 10^3/uL (0.1-0.8); Absolute Neutrophil Count 4.98 10^3/uL (1.2-6.7); Basophils % 0.4 %; HGB 17.9 g/dL (13.5-17.5); Immature Grans % 0.4 %; Lymphocytes % 17.4 %; MCH 32.8 pg (27.0-33.0); MCHC 33.1 % (32.0-36.0); MCV 99 fL (80-95); MPV 9.7 fL (8.0-11.0); Monocytes % 8.3 %; Neutrophils % 71.5 %; Platelet Count 199 10^3/uL (130-400); RBC 5.46 10^6/uL (4.36-5.78); RDW 15.1 % (11.8-14.1); RDW-SD 55.2 fL; WBC 6.97 10^3/uL (4.4-10.8)
[2024-11-29 09:00] LABS: ALT 14 U/L (16-63); AST 12 U/L (15-37); Albumin 3.8 g/dL (3.4-5.0); Alkaline Phosphatase 110 U/L (46-116); Anion Gap 3.5 mmol/L (3-11); BUN 15 mg/dL (7-18); Bilirubin, Total 0.39 mg/dL (0.2-1.0); CO2 32.5 mmol/L (21.0-32.0); Chloride 104 mmol/L (98-107); Estimated GFR 84.57 (mL/min/1.73m2); Glucose 81 mg/dL (74-106); LDH 178 U/L (85-227); Potassium 4.3 mmol/L (3.5-5.1); Sodium 140 mmol/L (136-145); Total Protein 7.7 g/dL (6.4-8.2)
== END 2024-12-08 23:59 | disposition home or self-care (01) ==
LOC: INF 01:36
PROVIDERS: PCP Neuromusculoskeletal Medicine & OMM; Visit Provider Nurse Practitioner Adult Health
DX: C84.48 Peripheral T-cell lymphoma, not elsewhere classified, lymph nodes of multiple sites (principal)
CPT/HCPCS: 36415; 36591; 80053; 83615; 85025

== ENCOUNTER 2024-12-20 03:58 | Outpatient (RCR) | payer MEDICARE, SELFPAY ==
[2024-12-20 10:31] LABS: Abs Immature Grans 0.04 10^3/uL (0.0-0.06); Absolute Basophil Count 0.03 10^3/uL (0.0-0.2); Absolute Eosinophil Count 0.16 10^3/uL (0.0-0.7); Absolute Lymphocyte Count 1.35 10^3/uL (1.2-3.4); Absolute Monocyte Count 0.59 10^3/uL (0.1-0.8); Absolute Neutrophil Count 5.15 10^3/uL (1.2-6.7); Basophils % 0.4 %; Eosinophils % 2.2 %; HCT 51.8 % (40.0-50.0); HGB 17.8 g/dL (13.5-17.5); Immature Grans % 0.5 %; Lymphocytes % 18.4 %; MCH 33.1 pg (27.0-33.0); MCHC 34.4 % (32.0-36.0); MCV 97 fL (80-95); MPV 9.5 fL (8.0-11.0); Monocytes % 8.1 %; Neutrophils % 70.4 %; Platelet Count 203 10^3/uL (130-400); RBC 5.37 10^6/uL (4.36-5.78); RDW 14.9 % (11.8-14.1); RDW-SD 53.3 fL; WBC 7.32 10^3/uL (4.4-10.8)
[2024-12-20 10:46] LABS: ALT 19 U/L (16-63); AST 18 U/L (15-37); Albumin 3.8 g/dL (3.4-5.0); Alkaline Phosphatase 106 U/L (46-116); Anion Gap 3.9 mmol/L (3-11); BUN 14 mg/dL (7-18); Bilirubin, Total 0.48 mg/dL (0.2-1.0); CO2 29.1 mmol/L (21.0-32.0); CREATININE 0.9 mg/dL (0.70-1.30); Calcium 9.2 mg/dL (8.5-10.1); Chloride 105 mmol/L (98-107); Estimated GFR 95.97 (mL/min/1.73m2); Glucose 103 mg/dL (74-106); LDH 237 U/L (85-227); Potassium 4.4 mmol/L (3.5-5.1); Sodium 138 mmol/L (136-145); Total Protein 7.6 g/dL (6.4-8.2)
== END 2025-01-05 23:59 | disposition home or self-care (01) ==
LOC: INF 03:58
PROVIDERS: PCP Neuromusculoskeletal Medicine & OMM; Visit Provider Nurse Practitioner Adult Health
DX: C84.48 Peripheral T-cell lymphoma, not elsewhere classified, lymph nodes of multiple sites (principal)
CPT/HCPCS: 36415; 80053; 83615; 85025

== ENCOUNTER 2025-01-31 02:09 | Outpatient (RCR) | payer MEDICAID, SELFPAY ==
[2025-01-10 12:37] LABS: Abs Immature Grans 0.03 10^3/uL (0.0-0.06); Absolute Basophil Count 0.04 10^3/uL (0.0-0.2); Absolute Eosinophil Count 0.12 10^3/uL (0.0-0.7); Absolute Lymphocyte Count 1.16 10^3/uL (1.2-3.4); Absolute Monocyte Count 0.49 10^3/uL (0.1-0.8); Basophils % 0.6 %; Eosinophils % 1.7 %; HGB 17.9 g/dL (13.5-17.5); Immature Grans % 0.4 %; Lymphocytes % 16.7 %; MCH 32.9 pg (27.0-33.0); MCHC 33.8 % (32.0-36.0); MCV 97 fL (80-95); MPV 9.4 fL (8.0-11.0); Monocytes % 7.1 %; Neutrophils % 73.5 %; Platelet Count 191 10^3/uL (130-400); RBC 5.44 10^6/uL (4.36-5.78); RDW 14.8 % (11.8-14.1); RDW-SD 53.8 fL; WBC 6.94 10^3/uL (4.4-10.8)
[2025-01-10 13:13] LABS: ALT 22 U/L (16-63); AST 15 U/L (15-37); Albumin 3.8 g/dL (3.4-5.0); Alkaline Phosphatase 104 U/L (46-116); Anion Gap 6.8 mmol/L (3-11); BUN 12 mg/dL (7-18); Bilirubin, Total 0.46 mg/dL (0.2-1.0); CO2 30.2 mmol/L (21.0-32.0); CREATININE 1.2 mg/dL (0.70-1.30); Chloride 103 mmol/L (98-107); Estimated GFR 67.95 (mL/min/1.73m2); Glucose 136 mg/dL (74-106); LDH 164 U/L (85-227); Potassium 4.2 mmol/L (3.5-5.1); Sodium 140 mmol/L (136-145); Total Protein 7.7 g/dL (6.4-8.2)
[2025-01-31 11:23] LABS: Abs Immature Grans 0.04 10^3/uL (0.0-0.06); Absolute Basophil Count 0.05 10^3/uL (0.0-0.2); Absolute Eosinophil Count 0.16 10^3/uL (0.0-0.7); Absolute Lymphocyte Count 1.44 10^3/uL (1.2-3.4); Absolute Monocyte Count 0.69 10^3/uL (0.1-0.8); Absolute Neutrophil Count 6.08 10^3/uL (1.2-6.7); Basophils % 0.6 %; Eosinophils % 1.9 %; HCT 53.5 % (40.0-50.0); Immature Grans % 0.5 %; MCH 32.5 pg (27.0-33.0); MCHC 33.6 % (32.0-36.0); MCV 97 fL (80-95); MPV 9.4 fL (8.0-11.0); Monocytes % 8.2 %; Neutrophils % 71.8 %; Platelet Count 261 10^3/uL (130-400); RBC 5.54 10^6/uL (4.36-5.78); RDW 14.8 % (11.8-14.1); RDW-SD 52.7 fL; WBC 8.46 10^3/uL (4.4-10.8)
[2025-01-31 11:44] LABS: ALT 22 U/L (16-63); AST 15 U/L (15-37); Albumin 3.9 g/dL (3.4-5.0); Alkaline Phosphatase 121 U/L (46-116); Anion Gap 6.5 mmol/L (3-11); BUN 11 mg/dL (7-18); Bilirubin, Total 0.3 mg/dL (0.2-1.0); CO2 28.5 mmol/L (21.0-32.0); Calcium 9.5 mg/dL (8.5-10.1); Chloride 104 mmol/L (98-107); Estimated GFR 84.57 (mL/min/1.73m2); Glucose 97 mg/dL (74-106); LDH 186 U/L (85-227); Potassium 4.5 mmol/L (3.5-5.1); Sodium 139 mmol/L (136-145)
== END 2025-02-05 23:59 | disposition home or self-care (01) ==
LOC: INF 02:09
PROVIDERS: PCP Neuromusculoskeletal Medicine & OMM; Visit Provider Nurse Practitioner Adult Health
DX: C86.00 Extranodal NK/T-cell lymphoma, nasal type not having achieved remission (principal)
CPT/HCPCS: 36415; 80053; 83615; 85025

== ENCOUNTER 2025-02-21 02:06 | Outpatient (RCR) | payer MEDICAID, SELFPAY ==
[2025-02-21 11:45] LABS: Abs Immature Grans 0.03 10^3/uL (0.0-0.06); Absolute Basophil Count 0.03 10^3/uL (0.0-0.2); Absolute Eosinophil Count 0.12 10^3/uL (0.0-0.7); Absolute Lymphocyte Count 1.47 10^3/uL (1.2-3.4); Absolute Monocyte Count 0.63 10^3/uL (0.1-0.8); Absolute Neutrophil Count 5.53 10^3/uL (1.2-6.7); Basophils % 0.4 %; Eosinophils % 1.5 %; HCT 51.9 % (40.0-50.0); HGB 18.1 g/dL (13.5-17.5); Immature Grans % 0.4 %; Lymphocytes % 18.8 %; MCH 33.1 pg (27.0-33.0); MCHC 34.9 % (32.0-36.0); MCV 95 fL (80-95); MPV 9.8 fL (8.0-11.0); Monocytes % 8.1 %; Neutrophils % 70.8 %; Platelet Count 222 10^3/uL (130-400); RBC 5.47 10^6/uL (4.36-5.78); RDW 15.4 % (11.8-14.1); RDW-SD 53.6 fL; WBC 7.81 10^3/uL (4.4-10.8)
[2025-02-21 12:00] LABS: ALT 21 U/L (16-63); AST 16 U/L (15-37); Albumin 3.9 g/dL (3.4-5.0); Alkaline Phosphatase 106 U/L (46-116); Anion Gap 6.3 mmol/L (3-11); BUN 12 mg/dL (7-18); Bilirubin, Total 0.5 mg/dL (0.2-1.0); CO2 29.7 mmol/L (21.0-32.0); Calcium 9.4 mg/dL (8.5-10.1); Chloride 102 mmol/L (98-107); Estimated GFR 84.57 (mL/min/1.73m2); Glucose 108 mg/dL (74-106); LDH 194 U/L (85-227); Potassium 4.6 mmol/L (3.5-5.1); Sodium 138 mmol/L (136-145); Total Protein 7.8 g/dL (6.4-8.2)
== END 2025-03-07 23:59 | disposition home or self-care (01) ==
LOC: INF 02:06
PROVIDERS: PCP Neuromusculoskeletal Medicine & OMM; Visit Provider Nurse Practitioner Adult Health
DX: C86.00 Extranodal NK/T-cell lymphoma, nasal type not having achieved remission (principal)
CPT/HCPCS: 36415; 80053; 83615; 85025

== ENCOUNTER 2025-04-04 01:01 | Outpatient (RCR) | payer MEDICAID, SELFPAY ==
[2025-03-14 11:28] LABS: Abs Immature Grans 0.02 10^3/uL (0.0-0.06); Absolute Basophil Count 0.04 10^3/uL (0.0-0.2); Absolute Eosinophil Count 0.14 10^3/uL (0.0-0.7); Absolute Lymphocyte Count 1.48 10^3/uL (1.2-3.4); Absolute Monocyte Count 0.62 10^3/uL (0.1-0.8); Absolute Neutrophil Count 5.03 10^3/uL (1.2-6.7); Basophils % 0.5 %; Eosinophils % 1.9 %; HCT 52.4 % (40.0-50.0); HGB 18.3 g/dL (13.5-17.5); Immature Grans % 0.3 %; Lymphocytes % 20.2 %; MCH 32.6 pg (27.0-33.0); MCHC 34.9 % (32.0-36.0); MCV 93 fL (80-95); MPV 9.1 fL (8.0-11.0); Monocytes % 8.5 %; Neutrophils % 68.6 %; Platelet Count 232 10^3/uL (130-400); RBC 5.62 10^6/uL (4.36-5.78); RDW 16.1 % (11.8-14.1); RDW-SD 53.9 fL; WBC 7.33 10^3/uL (4.4-10.8)
[2025-03-14 11:50] LABS: ALT 14 U/L (16-63); AST 16 U/L (15-37); Alkaline Phosphatase 105 U/L (46-116); Anion Gap 9.2 mmol/L (3-11); BUN 14 mg/dL (7-18); Bilirubin, Total 0.6 mg/dL (0.2-1.0); CO2 23.8 mmol/L (21.0-32.0); Calcium 9.4 mg/dL (8.5-10.1); Chloride 104 mmol/L (98-107); Estimated GFR 84.57 (mL/min/1.73m2); Glucose 101 mg/dL (74-106); LDH 189 U/L (85-227); Potassium 4.4 mmol/L (3.5-5.1); Sodium 137 mmol/L (136-145); Total Protein 8.1 g/dL (6.4-8.2)
[2025-04-04 14:03] LABS: Abs Immature Grans 0.04 10^3/uL (0.0-0.06); Absolute Basophil Count 0.04 10^3/uL (0.0-0.2); Absolute Eosinophil Count 0.11 10^3/uL (0.0-0.7); Absolute Lymphocyte Count 1.13 10^3/uL (1.2-3.4); Absolute Monocyte Count 0.56 10^3/uL (0.1-0.8); Absolute Neutrophil Count 6.37 10^3/uL (1.2-6.7); Basophils % 0.5 %; Eosinophils % 1.3 %; HCT 50.8 % (40.0-50.0); HGB 17.7 g/dL (13.5-17.5); Immature Grans % 0.5 %; Lymphocytes % 13.7 %; MCHC 34.8 % (32.0-36.0); MCV 95 fL (80-95); MPV 9.7 fL (8.0-11.0); Monocytes % 6.8 %; Neutrophils % 77.2 %; Platelet Count 226 10^3/uL (130-400); RBC 5.37 10^6/uL (4.36-5.78); RDW 15.7 % (11.8-14.1); WBC 8.25 10^3/uL (4.4-10.8)
[2025-04-04 14:24] LABS: ALT 17 U/L (16-63); AST 15 U/L (15-37); Albumin 3.7 g/dL (3.4-5.0); Alkaline Phosphatase 100 U/L (46-116); Anion Gap 9.3 mmol/L (3-11); BUN 14 mg/dL (7-18); Bilirubin, Total 0.4 mg/dL (0.2-1.0); CO2 24.7 mmol/L (21.0-32.0); CREATININE 1.1 mg/dL (0.70-1.30); Calcium 8.9 mg/dL (8.5-10.1); Chloride 104 mmol/L (98-107); Estimated GFR 75.43 (mL/min/1.73m2); Glucose 154 mg/dL (74-106); Potassium 3.9 mmol/L (3.5-5.1); Sodium 138 mmol/L (136-145); Total Protein 7.6 g/dL (6.4-8.2)
[2025-04-06 09:01] LABS: Misc Referral (UVM) See Comments
== END 2025-04-07 23:59 | disposition home or self-care (01) ==
LOC: INF 01:01
PROVIDERS: PCP Neuromusculoskeletal Medicine & OMM; Visit Provider Nurse Practitioner Adult Health
DX: C86.00 Extranodal NK/T-cell lymphoma, nasal type not having achieved remission (principal)
CPT/HCPCS: 36415; 80053; 83615; 85025

== ENCOUNTER 2025-04-30 02:54 | Outpatient (RCR) | payer MEDICAID, SELFPAY ==
[2025-04-30] MEDS: Normal Saline Flush 10 ML SYR IVP (13:01)
[2025-04-30 13:02] LABS: Abs Immature Grans 0.02 10^3/uL (0.0-0.06); Absolute Basophil Count 0.04 10^3/uL (0.0-0.2); Absolute Eosinophil Count 0.12 10^3/uL (0.0-0.7); Absolute Lymphocyte Count 1.31 10^3/uL (1.2-3.4); Absolute Monocyte Count 0.72 10^3/uL (0.1-0.8); Absolute Neutrophil Count 5.24 10^3/uL (1.2-6.7); Basophils % 0.5 %; Eosinophils % 1.6 %; HCT 52.7 % (40.0-50.0); HGB 18.2 g/dL (13.5-17.5); Immature Grans % 0.3 %; Lymphocytes % 17.6 %; MCHC 34.5 % (32.0-36.0); MCV 96 fL (80-95); MPV 9.7 fL (8.0-11.0); Monocytes % 9.7 %; Neutrophils % 70.3 %; Platelet Count 209 10^3/uL (130-400); RBC 5.52 10^6/uL (4.36-5.78); RDW 15.3 % (11.8-14.1); RDW-SD 54.2 fL; WBC 7.45 10^3/uL (4.4-10.8)
[2025-04-30 13:24] LABS: ALT 20 U/L (16-63); AST 13 U/L (15-37); Albumin 3.7 g/dL (3.4-5.0); Alkaline Phosphatase 106 U/L (46-116); Anion Gap 9.4 mmol/L (3-11); BUN 12 mg/dL (7-18); Bilirubin, Total 0.4 mg/dL (0.2-1.0); CO2 26.6 mmol/L (21.0-32.0); CREATININE 0.8 mg/dL (0.70-1.30); Calcium 8.8 mg/dL (8.5-10.1); Chloride 103 mmol/L (98-107); Estimated GFR 98.83 (mL/min/1.73m2); Glucose 117 mg/dL (74-106); LDH 143 U/L (85-227); Potassium 4.1 mmol/L (3.5-5.1); Sodium 139 mmol/L (136-145); Total Protein 7.6 g/dL (6.4-8.2)
== END 2025-05-07 23:59 | disposition home or self-care (01) ==
LOC: INF 02:54
PROVIDERS: PCP Neuromusculoskeletal Medicine & OMM; Visit Provider Nurse Practitioner Adult Health
DX: C86.00 Extranodal NK/T-cell lymphoma, nasal type not having achieved remission (principal); Z45.2 Encounter for adjustment and management of vascular access device
CPT/HCPCS: 36591; 80053; 83615; 85025

== ENCOUNTER 2025-05-16 03:32 | Outpatient (RCR) | payer MEDICAID, SELFPAY ==
[2025-05-16 10:44] LABS: Abs Immature Grans 0.04 10^3/uL (0.0-0.06); HCT 51.1 % (40.0-50.0); HGB 17.7 g/dL (13.5-17.5); Immature Grans % 0.5 %; MCH 32.5 pg (27.0-33.0); MCHC 34.6 % (32.0-36.0); MCV 94 fL (80-95); MPV 9.4 fL (8.0-11.0); Platelet Count 229 10^3/uL (130-400); RBC 5.44 10^6/uL (4.36-5.78); RDW 15.5 % (11.8-14.1); RDW-SD 52.6 fL; WBC 7.42 10^3/uL (4.4-10.8)
[2025-05-16 11:21] LABS: ALT 19 U/L (16-63); AST 15 U/L (15-37); Albumin 3.7 g/dL (3.4-5.0); Alkaline Phosphatase 101 U/L (46-116); Anion Gap 9.6 mmol/L (3-11); BUN 14 mg/dL (7-18); Bilirubin, Total 0.5 mg/dL (0.2-1.0); CO2 24.4 mmol/L (21.0-32.0); Calcium 8.9 mg/dL (8.5-10.1); Chloride 103 mmol/L (98-107); Estimated GFR 98.83 (mL/min/1.73m2); Glucose 101 mg/dL (74-106); LDH 199 U/L (85-227); Potassium 4.4 mmol/L (3.5-5.1); Sodium 137 mmol/L (136-145); Total Protein 7.5 g/dL (6.4-8.2)
== END 2025-06-07 23:59 | disposition home or self-care (01) ==
LOC: INF 03:32
PROVIDERS: PCP Neuromusculoskeletal Medicine & OMM; Visit Provider Nurse Practitioner Adult Health
DX: C86.00 Extranodal NK/T-cell lymphoma, nasal type not having achieved remission (principal)
CPT/HCPCS: 36415; 80053; 83615; 85025

== ENCOUNTER 2025-06-20 03:30 | Outpatient (RCR) | payer MEDICAID, SELFPAY ==
[2025-06-20 08:31] LABS: Abs Immature Grans 0.02 10^3/uL (0.0-0.06); HCT 54.4 % (40.0-50.0); HGB 18.5 g/dL (13.5-17.5); Immature Grans % 0.3 %; MCH 32.0 pg (27.0-33.0); MCHC 34.0 % (32.0-36.0); MCV 94 fL (80-95); MPV 9.1 fL (8.0-11.0); Platelet Count 187 10^3/uL (130-400); RBC 5.79 10^6/uL (4.36-5.78); RDW 15.0 % (11.8-14.1); RDW-SD 52.3 fL; WBC 6.01 10^3/uL (4.4-10.8)
[2025-06-20 08:44] LABS: ALT 17 U/L (16-63); AST 16 U/L (15-37); Albumin 3.8 g/dL (3.4-5.0); Alkaline Phosphatase 108 U/L (46-116); Anion Gap 6.1 mmol/L (3-11); BUN 13 mg/dL (7-18); Bilirubin, Total 0.4 mg/dL (0.2-1.0); CO2 25.9 mmol/L (21.0-32.0); Calcium 9.1 mg/dL (8.5-10.1); Chloride 104 mmol/L (98-107); Estimated GFR 95.37 (mL/min/1.73m2); Glucose 116 mg/dL (74-106); LDH 166 U/L (85-227); Potassium 4.3 mmol/L (3.5-5.1); Sodium 136 mmol/L (136-145); Total Protein 7.9 g/dL (6.4-8.2)
== END 2025-07-08 23:59 | disposition home or self-care (01) ==
LOC: INF 03:30
PROVIDERS: PCP Neuromusculoskeletal Medicine & OMM; Visit Provider Nurse Practitioner Adult Health
DX: C86.00 Extranodal NK/T-cell lymphoma, nasal type not having achieved remission (principal)
CPT/HCPCS: 36415; 80053; 83615; 85025

== ENCOUNTER 2025-07-25 03:17 | Outpatient (RCR) | payer MEDICAID, SELFPAY ==
[2025-07-25 11:47] LABS: Abs Immature Grans 0.02 10^3/uL (0.0-0.06); HCT 52.3 % (40.0-50.0); HGB 18.3 g/dL (13.5-17.5); Immature Grans % 0.2 %; MCH 32.9 pg (27.0-33.0); MCHC 35.0 % (32.0-36.0); MCV 94 fL (80-95); MPV 10.0 fL (8.0-11.0); Platelet Count 171 10^3/uL (130-400); RBC 5.57 10^6/uL (4.36-5.78); RDW 15.0 % (11.8-14.1); RDW-SD 51.8 fL; WBC 8.08 10^3/uL (4.4-10.8)
[2025-07-25 12:15] LABS: ALT 19 U/L (16-63); AST 14 U/L (15-37); Albumin 3.8 g/dL (3.4-5.0); Alkaline Phosphatase 102 U/L (46-116); Anion Gap 9.2 mmol/L (3-11); BUN 11 mg/dL (7-18); Bilirubin, Total 0.4 mg/dL (0.2-1.0); CO2 25.8 mmol/L (21.0-32.0); Calcium 9.2 mg/dL (8.5-10.1); Chloride 103 mmol/L (98-107); Glucose 110 mg/dL (74-106); Potassium 4.3 mmol/L (3.5-5.1); Sodium 138 mmol/L (136-145); Total Protein 7.6 g/dL (6.4-8.2)
[2025-07-25 15:14] LABS: LDH 193 U/L (85-227)
== END 2025-08-07 23:59 | disposition home or self-care (01) ==
LOC: INF 03:17
PROVIDERS: PCP Neuromusculoskeletal Medicine & OMM; Visit Provider Nurse Practitioner Adult Health
DX: C86.00 Extranodal NK/T-cell lymphoma, nasal type not having achieved remission (principal)
CPT/HCPCS: 36415; 80053; 83615; 85025

== ENCOUNTER 2025-08-29 01:59 | Outpatient (RCR) | payer MEDICAID, SELFPAY ==
[2025-08-29 14:24] LABS: Abs Immature Grans 0.02 10^3/uL (0.0-0.06); HCT 52.1 % (40.0-50.0); HGB 17.8 g/dL (13.5-17.5); Immature Grans % 0.3 %; MCH 32.0 pg (27.0-33.0); MCHC 34.2 % (32.0-36.0); MCV 94 fL (80-95); MPV 10.0 fL (8.0-11.0); Platelet Count 177 10^3/uL (130-400); RBC 5.57 10^6/uL (4.36-5.78); RDW 14.9 % (11.8-14.1); RDW-SD 51.8 fL; WBC 6.82 10^3/uL (4.4-10.8)
[2025-08-29 14:25] LABS: ALT 19 U/L (16-63); AST 15 U/L (15-37); Albumin 3.8 g/dL (3.4-5.0); Alkaline Phosphatase 106 U/L (46-116); Anion Gap 6.3 mmol/L (3-11); BUN 11 mg/dL (7-18); Bilirubin, Total 0.5 mg/dL (0.2-1.0); CO2 29.7 mmol/L (21.0-32.0); Calcium 9.0 mg/dL (8.5-10.1); Chloride 102 mmol/L (98-107); Estimated GFR 95.37 (mL/min/1.73m2); Glucose 104 mg/dL (74-106); LDH 182 U/L (85-227); Potassium 4.0 mmol/L (3.5-5.1); Sodium 138 mmol/L (136-145); Total Protein 7.8 g/dL (6.4-8.2)
== END 2025-09-07 23:59 | disposition home or self-care (01) ==
LOC: INF 01:59
PROVIDERS: PCP Neuromusculoskeletal Medicine & OMM; Visit Provider Nurse Practitioner Adult Health
DX: C86.00 Extranodal NK/T-cell lymphoma, nasal type not having achieved remission (principal)
CPT/HCPCS: 36415; 80053; 83615; 85025

== ENCOUNTER 2025-09-26 03:21 | Outpatient (RCR) | payer MEDICAID, SELFPAY ==
[2025-09-26 13:46] LABS: Abs Immature Grans 0.04 10^3/uL (0.0-0.06); HCT 53.0 % (40.0-50.0); HGB 18.2 g/dL (13.5-17.5); Immature Grans % 0.5 %; MCH 31.8 pg (27.0-33.0); MCHC 34.3 % (32.0-36.0); MCV 93 fL (80-95); MPV 9.7 fL (8.0-11.0); Platelet Count 188 10^3/uL (130-400); RBC 5.73 10^6/uL (4.36-5.78); RDW 14.9 % (11.8-14.1); RDW-SD 50.8 fL; WBC 8.23 10^3/uL (4.4-10.8)
[2025-09-26 14:08] LABS: LDH 179 U/L (120-246)
[2025-09-26 14:09] LABS: ALT 12 U/L (10-49); AST 16 U/L (<34); Albumin 4.4 g/dL (3.4-5.0); Alkaline Phosphatase 107 U/L (46-116); Anion Gap 6.6 mmol/L (3-11); BUN 12 mg/dL (9-23); Bilirubin, Total 0.40 mg/dL (0.2-1.2); CO2 23.4 mmol/L (20.0-31.0); Calcium 9.0 mg/dL (8.3-10.6); Chloride 109 mmol/L (98-107); Glucose 106 mg/dL (74-106); Potassium 4.1 mmol/L (3.5-5.1); Sodium 139 mmol/L (136-145); Total Protein 7.4 g/dL (5.7-8.2)
== END 2025-10-07 23:59 | disposition home or self-care (01) ==
LOC: INF 03:21
PROVIDERS: PCP Neuromusculoskeletal Medicine & OMM; Visit Provider Nurse Practitioner Adult Health
DX: C86.00 Extranodal NK/T-cell lymphoma, nasal type not having achieved remission (principal)
CPT/HCPCS: 36415; 80053; 83615; 85025